=== PATIENT | female | born 1945 | race Caucasian/White ===

== ENCOUNTER 2016-04-21 09:53 | Inpatient (IN) | payer OTHER, BC ==
--- NOTE | 2016-04-15 17:12 | GHP ---
[f rep st] PREOP HISTORY AND PHYSICAL DATE OF ADMISSION: She will be an a.m. admission for surgery at [facility] on April 21, 2016. PROBLEM: Right hip degenerative arthritis. HISTORY OF PRESENT ILLNESS: The patient is a 70-year-old woman admitted for a right total hip arthroplasty. She has had progressive pain in her right hip for over a year. Her pain is worse with walking and after riding her horse. In the past few months, the pain is quite a bit worse. She uses a cane for walking. She is unable to put her shoes and socks on the right foot. She has tried antiinflammatory medications and Tylenol, which have not helped. She is not aware of previous injury or trauma to her hip. Her films show very severe degenerative arthritis of the right hip. She has failed nonsurgical treatment. She is admitted for a right total hip arthroplasty. PAST MEDICAL HISTORY: Excellent general health. No history of previous MRSA or staph infections. No history of heart disease, stents, DVT, hepatitis, or sleep apnea. CURRENT MEDICATIONS: She takes no prescription drugs. DRUG ALLERGIES: Sulfa caused hives. She is also allergic to doxycycline, flu shot preservatives, and tetanus. Metal allergies: None. Latex allergy: None. BODY AFTER ALLERGIES: SOCIAL HISTORY: The patient lives alone. She does not smoke cigarettes and occasionally drinks alcohol. FAMILY HISTORY: Positive for arthritis and heart disease. PHYSICAL EXAMINATION: GENERAL: She is an alert, healthy-appearing elderly woman. Height 5 feet, weight 150 pounds. BMI 29.3. EYES: She has had cataract surgery in the right eye with a lens implant. MOUTH: She has permanent full false teeth. Good oral hygiene. CHEST: Clear. HEART: Regular rhythm. No murmurs. EXTREMITIES: Pertinent findings are limited to her right hip. She has full extension and 110 degrees of flexion. External rotation 0 degrees. Internal rotation 0 degrees. Abduction 30 degrees. IMAGING: Her films show very severe degenerative arthritis of her right hip. She has cystic degeneration of the femoral head. There is erosion and flattening of the superior femoral head. Moderate osteoporosis is present. She is approximately 6 or 8 mm short on the right. IMPRESSION ON ADMISSION: Right hip advanced degenerative arthritis. She has failed nonsurgical treatment. She will undergo a right total hip arthroplasty. The surgery has been described to her, including the risks, complications, expectations, and recovery time. All her questions have been answered and she consents to surgery. I have discussed with her the issues of dislocation, leg length inequality, infection, and sciatic nerve injury. Copy requested to: TIMMY ALFONSO /[id number]/MODL MTDD
[~2016-04-21 09:53] MED LIST: ACETAMINOPHEN 325 MG TAB PO ONE; CEFAZOLIN 2 GM/DEXTR 100 ML IV ONE; CHLORHEXIDINE GLUC HIBICLENS 118 ML BTL TP ONE; DEXAMETHASONE 4 MG/ML VIAL IVP ONE; FAMOTIDINE 20 MG TAB PO ONE; POVIDONE-IODINE 20 ML in SODIUM CL IRRIG SOLUTION 500 ML IRR ONE; ROPI/epiNEPH/KETOROLAC JOINT COCKTAIL IU ONE; TRANEXAMIC ACID 1,360 MG in NS 100 ML IV ONE
[2016-04-21] MEDS ORDERED: MIDAZOLAM 2 MG/2 ML VIAL ONE ×2 (10:09→11:39)
[2016-04-21] MEDS ORDERED: PROPOFOL/EMULSION 500 MG/50 ML BOTTLE IV ONE (10:09)
[2016-04-21] MEDS ORDERED: DEXAMETHASONE 4 MG/ML VIAL ONE (10:39)
[2016-04-21] MEDS ORDERED: ACETAMINOPHEN 325 MG TAB ONE (10:40)
[2016-04-21] MEDS ORDERED: FAMOTIDINE 20 MG TAB ONE (10:40)
[2016-04-21] MEDS ORDERED: CEFAZOLIN 2 GM/DEXTROSE/100 ML BAG IV ONE (10:40)
[2016-04-21] MEDS ORDERED: SKIN ADHESIVE (DERMABOND) 1 EACH TP ONE (11:08)
[2016-04-21] MEDS ORDERED: LR 1,000 ML IV ONE (11:09)
[2016-04-21] MEDS ORDERED: ceFAZolin 1 GM/5 ML SYR ONE (11:09)
[2016-04-21] MEDS ORDERED: fentaNYL 100 MCG/2 ML INJ ONE (11:36)
[2016-04-21] MEDS ORDERED: epHEDrine SULFATE 10 MG/ML SYR ONE ×2 (11:47→12:01)
[2016-04-21] MEDS ORDERED: ALBUMIN 5% 250 ML BOTTLE IV ONE (12:16)
[2016-04-21] MEDS ORDERED: LIDOCAINE 2% 5 ML SDV ONE (12:18)
[2016-04-21] MEDS ORDERED: PROPOFOL 200 MG/20 ML VIAL ONE (12:26)
[2016-04-21] MEDS ORDERED: ONDANSETRON DISINTEGRATING 4 MG TAB PO PRN (13:09)
[2016-04-21] MEDS ORDERED: PROMETHAZINE HCL 25 MG/ML INJ IVP PRN (13:09)
[2016-04-21] MEDS ORDERED: DIPHENOXYLATE/ATROPINE LOMOTIL 1 TAB PO PRN (13:09)
[2016-04-21] MEDS ORDERED: PHARMACY PAIN CONSULT 1 EA MISC PRN (13:09)
[2016-04-21] MEDS ORDERED: diphenhydrAMINE 25 MG CAP PO PRN (13:09)
[2016-04-21] MEDS ORDERED: LACTULOSE 20 GM/30 ML UDCUP PO PRN (13:09)
[2016-04-21] MEDS ORDERED: METOCLOPRAMIDE 10 MG/2 ML VIAL IVP PRN (13:09)
[2016-04-21] MEDS ORDERED: PROMETHAZINE HCL 25 MG SUPPR PR PRN (13:09)
[2016-04-21] MEDS ORDERED: BISACODYL 10 MG SUPP PR PRN (13:09)
[2016-04-21] MEDS ORDERED: POLYETHYLENE GLYCOL 3350 17 GM PKT PO PRN (13:09)
[2016-04-21] MEDS ORDERED: CYCLOBENZAPRINE 10 MG TAB PO PRN (13:09)
[2016-04-21] MEDS ORDERED: ONDANSETRON 4 MG/2 ML VIAL IVP PRN (13:09)
[2016-04-21] MEDS ORDERED: NS 500 ML IV PRN (13:09)
[2016-04-21] MEDS ORDERED: MAGNESIUM HYDROXIDE 30 ML UDCUP PO PRN (13:09)
[2016-04-21] MEDS ORDERED: TEMAZEPAM 15 MG CAP PO PRN (13:09)
[2016-04-21] MEDS ORDERED: traMADol 50 MG TAB PO PRN (13:09)
[2016-04-21] MEDS ORDERED: LR 1,000 ML IV SCH (13:30)
--- NOTE | 2016-04-21 13:52 | DX ---
Pelvis single view History: Postoperative evaluation right hip arthroplasty. Findings: Postsurgical changes are seen of a right total hip arthroplasty with good alignment and oliver earance. No evidence for periprosthetic lucency or fracture. There is appropriate soft tissue change for the immediate postsurgical appearance. Degenerative change is seen in the lumbar spine and symphy sis pubis. Vascular calcifications are seen indicating atherosclerotic disease. Impression: Postsurgical changes of a right total hip arthroplasty with good alignment and appearance .
[2016-04-21] MEDS ORDERED: ceFAZolin 2 GM/DEXTROSE 100 ML IV SCH (14:00)
--- NOTE | 2016-04-21 14:13 | GOP ---
[f rep st] OPERATIVE REPORT DATE OF OPERATION: 04/21/2016 SURGEON: Eddie Ding MD MILLER ROD MILL: Leonidas Sandoval ANESTHESIA: A combination of Marcaine, spinal, and IV sedation. ANESTHESIOLOGIST: Dr. Eladia Pereyra PREOPERATIVE DIAGNOSIS: Right hip severe degenerative arthritis. POSTOPERATIVE DIAGNOSIS: Right hip severe degenerative arthritis. PROCEDURE PERFORMED: April 21, 2016 a right total hip arthroplasty, ceramic femoral head on a highly crosslinked polyethylene cup liner. FINDINGS: DESCRIPTION OF PROCEDURE: The patient was given 2 g of IV Ancef preoperatively within 60 minutes of surgery. She also received IV tranexamic acid at a dose of 20 mg/kg. She was placed on the operating room table and given spinal anesthesia with Marcaine by Dr. Pereyra. She was then placed supine and given IV sedation. She wore a stocking and SCD on the nonoperative leg. She was rolled to the left lateral decubitus position. The position was secured with the pegboard table attachment. An axillary roll was used and all pressure points were carefully padded. I was careful to lock her pelvis in a rigid vertical position. Her perineum was isolated with plastic adhesive drapes. The right hip and right lower extremity were prepped with ChloraPrep. They were draped free using sterile sheets, stockinette, and Ioban plastic drapes. The World Health Organization timeout was performed to verify the correct surgical side and the correct patient identity. The [place] timeout was also performed. I made a 5-inch straight oblique posterolateral hip skin incision. The subcutaneous tissues were sharply divided and hemostasis was obtained using electrocautery. She had a moderately thick layer of subcutaneous fat. The fascia guanako was identified and split along the axis of its fibers. I then curved posteriorly and proximally and split the fascia of the gluteus terry and bluntly split the muscle fibers in line with their orientation. The Charnley self-retaining retractor was inserted. Her sciatic nerve was located, partially exposed and protected throughout the procedure. The external rotators and the posterior hip capsule were divided as separate layers at the base of the femoral neck, tagged and reflected posteriorly. A smooth 8-inch Steinmann pin was inserted vertically into the ilium superior to the acetabulum. A 1/8-inch drill bit was inserted vertically into the greater trochanter and parallel to the first pin. The distance between the two was measured for leg length reference. Her femoral head was dislocated posteriorly. Severe degenerative changes were present on the femoral head. Her femoral neck was osteotomized at the appropriate level and inclination. I was careful to preserve all the posterior capsule and most of the anterior capsule. The remnant of her damaged labrum was excised. I prepared the femur first. This allowed me to grain unloader machine the amount of natural femoral neck anteversion. This in turn, allowed me to later determine the correct amount of cup anteversion. She had approximately 8 or 10 degrees of natural femoral neck anteversion. The canal was opened laterally with a box chisel. I reamed and broached sequentially up to size 8. I used a size 8 broach as a trial stem. I was careful to lateralize adequately. Appropriate retractors were inserted to expose the acetabulum. The acetabulum was reamed sequentially up to 49 mm. I selected a 50 mm [place] Tritanium cluster hole hemispherical shell. This was tapped securely into place in the proper degree of inclination and anteversion. I used the transverse acetabular ligament and other acetabular bony landmarks to help me properly orient the cup. I inserted a 25 mm and a 35 mm supplemental fixation screw through the shell. I also inserted a screw in metal dome hole plug. I performed a series of trial reductions to determine length and stability. I concluded that the size 8 stem with a 0 mm neck with a 32 mm head and a flush liner gave me the proper combination of appropriate length and good anterior and posterior stability. She was 5 or 6 mm short preoperatively because of the deformity and erosion of her femoral head. I was intentionally lengthening her. The flush [place] X3 highly crosslinked polyethylene liner was then inserted and tapped securely into place. I chose a [place] Secur-Fit max stem and a size 8 with standard offset. This was inserted press-fit and was very tight. I did 1 final trial reduction and confirmed that the 0 neck length with a 32 mm head was the proper combination. I selected the [place] Biolox Delta ceramic head with an outside diameter of 32 mm and a neck length of 0 mm. This was tapped securely onto the clean trunnion. The acetabulum was irrigated, cleaned , and the hip was reduced 1 final time. She had excellent anterior and posterior stability and appropriate length. 40 mL of the joint anesthetic cocktail were injected in the capsule, the deep musculature, and the subcutaneous tissues around the skin edges. The joint was thoroughly irrigated 1 final time with a dilute Betadine solution. Her sciatic nerve was reinspected and looked unharmed. The external rotators and the posterior hip capsule were repaired in separate layers FiberWire sutures through drill holes in the greater trochanter. This provided a strong posterior capsular and external rotator repair. The fascia guanako was closed first with 2 interrupted [id number] #2 FiberWire sutures, followed by a running #2 barbed Ethicon StrataFix PDO suture. The subcutaneous tissues were closed in layers starting with interrupted 2-0 Monocryl sutures, followed by a running 0 barbed Ethicon StrataFix Monoderm suture. The skin was closed with a running 3-0 barbed Ethicon StrataFix Monoderm subcuticular suture. The skin edges were reapproximated and sealed with Dermabond glue. The wound was covered with a strip of Telfa, and everything was held in place with a piece of clear plastic Tegaderm. A long-leg BENJAMIN stocking and SCD were applied to her right lower extremity. She wore a stocking and SCD on the opposite leg during the procedure. An abduction pillow was placed between her knees. She was awakened from anesthesia and rolled to the supine position on her [facility]. She was taken to PACU in satisfactory condition. There were no recognized intraoperative complications. The estimated blood loss was about 300 mL. I used a [place] Tritanium hemispherical cluster hole acetabular shell with an outside diameter of 50 mm. The liner was a [place] X3 flush highly crosslinked liner with an inside diameter of 32 mm. The femoral component was a Press-Fit Jaylin standard offset Secur-Fit max stem and a size 8. The femoral head was a [place] Biolox Delta ceramic head with a 0 neck length and a 32 mm outside diameter. I inserted a 25 mm and 30 mm supplemental fixation screw through the shell. Leonard Xavier and Leonidas Aguiar acted as surgical assistants. Their assistance was a medical necessity. Copy requested to: Samarafabiola Lopez /[id number]/MODL MTDD
[2016-04-21] MEDS ORDERED: TRANEXAMIC ACID 650 MG TAB PO SCH (16:00)
[2016-04-21] MEDS: ACETAMINOPHEN 325 MG TAB PO SCH ×2 (17:35→23:29)
[2016-04-21] MEDS: KETOROLAC 30 MG/1 ML SDV IVP PRN (17:35)
[2016-04-21] MEDS: oxyCODONE IR 5 MG TAB PO PRN ×3 (17:41→23:29)
[2016-04-21] MEDS: ceFAZolin 2 GM in D5W 100 ML IV SCH (17:43)
[2016-04-21] MEDS: SENNOSIDES/DOCUSATE SODIUM TAB PO SCH (20:05)
[2016-04-21] MEDS: ASPIRIN 325 MG TAB PO SCH (20:06)
[2016-04-21] MEDS: FAMOTIDINE 20 MG TAB PO SCH (20:06)
[2016-04-22] MEDS: ceFAZolin 2 GM in D5W 100 ML IV SCH (01:56)
[2016-04-22 04:48] LABS: HEMATOCRIT 33.7 % (38.0-47.0); HEMOGLOBIN 11.4 g/dL (12.6-16.3)
[2016-04-22] MEDS: ACETAMINOPHEN 325 MG TAB PO SCH ×2 (05:12→12:58)
[2016-04-22] MEDS: oxyCODONE IR 5 MG TAB PO PRN ×4 (05:13→14:59)
--- NOTE | 2016-04-22 07:35 | SOAPPROG ---
SOAP Progress Note Assessment/Plan: Assessment: Afebrile. Awake and alert. Has been walking in room. Moderate pain. Sciatic nerve intact. H/H is good. Films look good. Plan: PT today. DC later today. 04/22/16 07:33 Objective: Vital Signs Temp Pulse Resp BP Pulse Ox 36.6 C 65 16 110/57 L 96 04/22/16 04:00 04/22/16 04:00 04/22/16 04:00 04/22/16 04:00 04/22/16 04:00 Laboratory Results 04/22/16 04:32 04/21/16 04/22/16 04/23/16 05:59 05:59 05:59 Intake Total 1500 Output Total 1800 Balance -300 ICD10 Worksheet Patient Problems: Problems Problem Status Diagnosed Osteoarthritis of right hip Acute
--- NOTE | 2016-04-22 07:40 | PDIAF ---
- Diagnosis Diagnosis: right hip arthritis Code Status: Full Code - Medication Management Discharge Medications: Medications to Continue on Transfer Calcium Carbonate/Vitamin D3 [Calcium 500 + Vit D Caplet] 1 each PO DAILY [Last Taken Unknown] Ibuprofen [Motrin (*)] 200 mg PO DAILY PRN 04/21/16 [Last Taken Unknown] Acetaminophen [Tylenol 325mg (*)] 650 mg PO Q6HRS #0 tab 04/22/16 [Last Taken Unknown] Aspirin [Aspirin 325 mg (*)] 325 mg PO DAILY #21 tab 04/22/16 [Last Taken Unknown] Ferrous Sulfate [Slow Fe 140 MG (*)] 140 mg PO DAILY #30 tab.er 04/22/16 [Last Taken Unknown] Ondansetron Odt [Zofran Odt 4 mg (*)] 4 mg PO Q4HRS PRN #0 tab 04/22/16 [Last Taken Unknown] oxyCODONE IR [Oxycodone Ir (*)] 5 - 10 mg PO Q3HRS PRN #0 tab 04/22/16 [Last Taken Unknown] traMADol [Ultram 50 mg (*)] 50 mg PO Q6HRS PRN #0 tab 04/22/16 [Last Taken Unknown] Discharge Medications: Refer to the Discharge Home Medication list for PRN reason. PICC Care - Routine: N/A - Orders Services needed: Home Care, Physical Therapy Home Care Face to Face: I certify that this patient was under my care and that I had the required [id number] encounter meeting the encounter requirements on the discharge day. My findings support the fact that the patient is homebound as defined in CMS Chapter 7 Medicare Benefits Manual 30.1.1, The condition of the patient is such that there exists a normal inability to leave home and consequently, leaving home would require a considerable and taxing effort. Diet Recommendation: no restrictions on diet Diet Texture: Regular Texture Diet Gallegos: Not applicable Alexandru Stockings Discontinue Date: 1 week Wound Care Instructions: keep clean and dry. You may shower. Activity/Weight Bearing Restrictions: as tolerated. - Follow Up Care Current Providers and Referrals: TIMMY ALFONSO [Primary Care Provider] - Eddie Ding MD [Medical Doctor] - 05/14/16 11:15 am
[2016-04-22] MEDS: ASPIRIN 325 MG TAB PO SCH (08:45)
[2016-04-22] MEDS: SENNOSIDES/DOCUSATE SODIUM TAB PO SCH (08:46)
[2016-04-22] MEDS: KETOROLAC 30 MG/1 ML SDV IVP PRN (08:47)
[2016-04-22] MEDS: FAMOTIDINE 20 MG TAB PO SCH (08:47)
[2016-04-22] MEDS ORDERED: CALCIUM CARB W/VIT D 500 MG TAB PO SCH (09:00)
[2016-04-22] MEDS ORDERED: FERROUS SULFATE 140 MG TAB.ER PO SCH (09:00)
[2016-04-22] MEDS ORDERED: [UNRECOGNIZED DRUG - OTHER] PO SCH (09:00)
[2016-04-22] MEDS ORDERED: VITAMIN D3 PO SCH (09:00)
[2016-04-22] MEDS ORDERED: CALCIUM CARBONATE PO SCH (09:00)
--- NOTE | 2016-04-22 09:11 | GDS ---
[f rep st] DISCHARGE SUMMARY ADMISSION DIAGNOSIS: Right hip severe degenerative arthritis. DISCHARGE DIAGNOSIS: Right hip severe degenerative arthritis. PROCEDURE PERFORMED: 04/21/2016, right total hip arthroplasty, ceramic femoral head on highly cross- linked polyethylene cup liner. POSTOPERATIVE COMPLICATIONS: None. CONDITION ON DISCHARGE: Improved. DESCRIPTION OF HOSPITAL COURSE: The patient was admitted to the hospital on the morning of surgery. Her admission CBC was normal. The same day, under a combination of Marcaine spinal and IV sedation, she underwent a right total hip arthroplasty. Postoperatively, she was able to void spontaneously. She was treated with multimodal DVT prophylaxis including aspirin. On the 1st postoperative day, he r hemoglobin and hematocrit were 11.4 and 33.7. She did not require any transfused blood. She was s een by Physical Therapy and made excellent progress with ambulation and stairs. By the time of disch arge, she was afebrile, her wound was clean and dry, and she was independent walking with a walker. DISPOSITION: She is discharged to her home. She will have home physical therapy. Use an abduction pillow in bed for 3 weeks. Use BENJAMIN stockings for 1 week. Continue aspirin 325 mg p.o. daily for 21 days. She may progress to full weightbearing on the right as tolerated. She has prescription for ox ycodone and tramadol for pain control. I will see her back in the office on May 14, 2016. If t here are any problems, she is to call me at the office. /[id number]/MODL
[2016-04-22 09:35] VITALS: TEMP 97.7
[2016-04-22 11:49] VITALS: BP 116/67; PULSE 77; RESP 16; O2SAT 95
== END 2016-04-22 15:15 | disposition home or self-care (01) | DRG 470 ==
LOC: F3N 09:53
PROVIDERS: ADMIT Orthopaedic Surgery; ATTEND Orthopaedic Surgery
PROC: 0SR904Z Replacement of Right Hip Joint with Ceramic on Polyethylene Synthetic Substitute, Open Approach (ICD-10-PCS; principal; 2016-04-21 11:30)
DX: M16.11 Unilateral primary osteoarthritis, right hip (principal); F41.9 Anxiety disorder, unspecified
CPT/HCPCS: 97116-GP; 97161-GP; 97165-GO; 97530-GP; C1713; G8978-GP-CI; G8979-GP-CI; G8987-GO-CI; G8988-GO-CI; G8989-GO-CI; J0171; J0690; J1100; J1885; J2250; J2704; J2795; J3010; P9041